=== PATIENT | male | born 2000 | race African-American/Black ===

== ENCOUNTER → 2019-10-19 09:35 | Outpatient (CLI) | payer BC, SELFPAY ==
[2019-10-19 09:34] VITALS: BMI 35.6
--- NOTE | 2019-10-19 09:39 | RAD_ITS ---
STUDY: X-RAY - LEFT KNEE REASON FOR EXAM: Knee pain after lifting weights, squatting. TECHNIQUE: 4 view(s) of the knee. COMPARISON: None. FINDINGS: Normal visualized distal femur. Normal visualized proximal tibia and fibula. Normal proximal tibiofibular articulation. Normal medial femorotibial compartment. Normal lateral femorotibial compartment. Normal patellofemoral articulation. The soft tissue structures are unremarkable. RAD/Knee 4 or More Views IMPRESSION: Normal x-ray examination of the left knee. Electronically Signed: Burton Reyes MD at 10:03 EST Tel , Service support ,
== END ==
LOC: HPRAD 09:39
PROVIDERS: PCP Pediatrics; Referring Provider Orthopaedic Surgery; Visit Provider Orthopaedic Surgery
DX: S89.92XA Unspecified injury of left lower leg, initial encounter (principal); X50.0XXA Overexertion from strenuous movement or load, initial encounter; Y93.B3 Activity, free weights; Y92.9 Unspecified place or not applicable; Y99.9 Unspecified external cause status
CPT/HCPCS: 73564

== ENCOUNTER → 2019-11-03 08:54 | Outpatient (CLI) | payer BC, SELFPAY ==
[2019-10-19 09:34] VITALS: BMI 35.6
--- NOTE | 2019-11-03 08:56 | MRI_ITS ---
STUDY: MRI LEFT KNEE REASON FOR EXAM: Male, 19 years old. Pain. Instability. Recent injury. TECHNIQUE: Standardized fat and water weighted pulse sequences were obtained in all 3 orthogonal planes. COMPARISON: None. FINDINGS: Normal medial meniscus. Normal hyaline cartilage of the medial femorotibial compartment. Normal medial femoral condyle and tibial plateau. Normal medial collateral ligamentous complex (MCL). Normal distal semimembranosus, gracilis and semitendinosus tendons. Normal lateral meniscus. Normal hyaline cartilage of the lateral femorotibial compartment. Normal lateral femoral condyle and tibial plateau. Normal proximal tibiofibular articulation. Normal lateral collateral (fibular) ligament. Normal popliteus tendon. Normal biceps femoris tendon. Normal anterior cruciate ligament (ACL). Normal posterior cruciate ligament (PCL). There is a patella salo deformity. Normal hyaline cartilage of the patellofemoral compartment. Normal medial and lateral patellar retinaculum. Normal quadriceps tendon. Normal patellar tendon. Normal Hoffa''s fat pad. There is a small volume joint effusion. The soft tissues are unremarkable. The otherwise visualized osseous structures are unremarkable. MRI/Lower Ext Joint Only (Routine) IMPRESSION: No ligamentous or meniscal tear. Patella salo. Joint effusion. Electronically Signed: Eduar Lopez MD at 10:55 EST , Service support ,
== END ==
LOC: MRI 08:56
PROVIDERS: PCP Physician Assistant; Referring Provider Orthopaedic Surgery; Visit Provider Orthopaedic Surgery
DX: S83.8X2A Sprain of other specified parts of left knee, initial encounter (principal); M25.562 Pain in left knee; X58.XXXA Exposure to other specified factors, initial encounter; Y93.9 Activity, unspecified; Y92.9 Unspecified place or not applicable; Y99.9 Unspecified external cause status
CPT/HCPCS: 73721

== ENCOUNTER 2025-01-01 23:23 | Emergency (ER) | payer SELFPAY ==
[2025-01-01 23:23] VITALS: BP 149/89; PULSE 89; RESP 15; TEMP 37.1; O2SAT 98; BMI 37.4
--- NOTE | 2025-01-01 23:51 | RAD_ITS ---
EXAM: Ribs unilateral minimum three views with PA chest x-ray CLINICAL HISTORY: Pain COMPARISON: None available TECHNIQUE: PA view of the chest and four views of the right ribs, 5 total images FINDINGS: The lungs are clear. No pneumothorax or pleural effusion. The cardiac and mediastinal contours are within limits. The visualized osseous structures appear within limits. No right-sided rib fracture or osseous lesion identified. RAD/Ribs Uni Min 3V w/PA Chest IMPRESSION: No evidence of acute disease as above. Reading Location: [id number]
[2025-01-02] MEDS: Orphenadrine 60 MG/2 ML Ampul IM (00:09)
[2025-01-02] MEDS: Ketorolac 30 MG/ML Syringe IM (00:09)
--- NOTE | 2025-01-02 00:57 | EDS_ITS ---
HPI History of Present Illness Chief Complaint: Chest Other Informant: patient and friend Narrative Narrative: Patient is a 24-year-old male with no reported significant past medical history. He states over the last 2 to 3 days he has noticed some pain in his right rib region. He states it hurts to move and take a deep breath. He denies any excessive activity or recent trauma. He denies any sick symptoms. He states that there has been no recent travel or surgery and he denies any history of DVT/PE. He also denies any family history of cardiac disease at a young age. He states that he was talking to his coworker this evening about his pain and she advised him to come to the hospital for evaluation. PFSH PFS Medical History no medical history no medical history Home Medications ?Medication ?Instructions ?Recorded ?Last Taken ?Type ibuprofen 600 mg tablet 600 mg PO 4X/DAY PRN pain #4 0 tabs 01/02/25 Unknown Rx methocarbamol 500 mg tablet 1,000 mg (2 x 500 mg) PO 4 X/DAY 01/02/25 Unknown Rx PRN Muscle pain/spasm #56 tabs Allergy/AdvReac Type Severity Reaction Status Date / Time No Known Allergies Allergy Verified 01/01/25 23:26 Social History (Updated 10/23/19 @ 11:[address] Faustina Valladares, DO) Smoking Status: Current every day smoker tobacco type: e-cigarettes ROS ROS ED Constitutional Constitutional ED: Denies chills or fever(s) Eyes Eyes: Denies change in vision ENT ENT ED: Denies sore throat Cardiovascular Cardiovascular: Reports chest pain; Denies palpitations or racing heartbeat Respiratory/Chest Respiratory/Chest: Denies cough or dyspnea Gastrointestinal Gastrointestinal: Denies abdominal pain, diarrhea, nausea or vomiting Genitourinary Genitourinary ED: Denies dysuria Musculoskeletal Musculoskeletal: Denies back pain Integumentary Denies Abrasions or rash Neurologic Neurologic: Denies headache(s) Hematologic/Lymphatic Hematologic/Lymphatic: Denies easy bleeding or easy bruising EXAM Physical Exam Const Vital Signs: 01/01/25 23:23 01/01/25 23:26 01/02/25 01:12 Temperature 98.7 F 98.1 F Temperature Source Axillary Pulse Rate 89 78 Respiratory Rate 15 16 Respiratory Effort Normal Non-Labored Blood Pressure 149/89 H 136/82 H Blood Pressure Mean 109 100 Pulse Ox 98 99 Oxygen Delivery Method Room Air Positive well nourished and well developed General Appearance ED: well developed; Negative for pallor HEENT HEENT Narrative: Normocephalic atraumatic Eyes PERRL and EOMs intact bilaterally General Eye ED: Negative for scleral icterus Neck supple and no JVD Chest Wall Chest Narrative: No bony deformity or subcutaneous emphysema noted There is reproducible pain with palpation in the right anterior lateral region rib regions 6-9 No overlying soft tissue changes to suggest trauma or infection Resp normal respiratory effort and clear to auscultation bilaterally Cardio regular rate and regular rhythm Rate: other Other Details: No murmurs rubs or gallops noted Radial and carotid pulses are equal and symmetric GI normal to inspection, nondistended, normoactive bowel sounds, non-tender, non- distended and no masses GI Narrative: No voluntary guarding or rigidity or pulsatile mass Negative Llamas sign Auscultation: normoactive bowel sounds Palpation: soft Back/Spine no CVA tenderness Extremity normal to inspection Extremity Narrative: No asymmetric edema no pitting edema negative Homans' sign bilaterally Neuro oriented x3, CN's II-XII intact bilaterally and no sensory deficits noted Sensorium / Orientation: alert Motor Exam: strength 5/5 throughout Psych mental status grossly normal Skin no rashes or lesions noted and no wounds General Skin Exam: Negative for jaundice or pallor MDM MDM MDM Narrative Medical decision making narrative: Patient arrived to the ER slightly hypertensive otherwise with stable vitals. He reported pain in the right rib cage region without trauma that is worse with motion and inspiration. In order to rule out pneumothorax or rib fracture or pneumonia chest x-ray with rib series was performed. We discussed potential D- dimer study for pulmonary embolus but the patient is PERC negative and therefore does not want to have blood work obtained. As the pain is reproducible and worse with motion and he has no clinically significant risk factors for cardiovascular disease I do not feel that this is ACS and physical exam shows normal sinus rhythm going against cardiac dysrhythmia as a cause of his pain. Therefore this time only felt need for the imaging study. X-ray revealed no acute findings and after treatment Toradol and Norflex he did report feeling better. As physical exam also shows no sign of soft tissue infection such as cellulitis or abscess I do not feel there is need for any type of further workup and is otherwise safe for discharge with symptomatic care. History & Record Review Discussion w/independent historian: Patient and Friend Radiography Diagnostic Testing: Clinical Impression(s) from Imaging Studies Ribs w/Chest X-Ray 01/01/25 23:51 IMPRESSION: No evidence of acute disease as above. Reading Location: [facility] Right rib series with 1 view chest as interpreted by the emergency medicine physician reveals no acute rib fracture or pneumothorax or infiltrate Discharge Plan Triage Chief Complaint: Chest Other ED Provider: Conor Pérez Dx/Rx/DC Orders Clinical Impression: Intercostal muscle strain Instructions: ED Chest Wall Strain Prescriptions: New ibuprofen 600 mg tablet 600 mg PO 4X/DAY PRN (Reason: pain) Qty: 40 0RF methocarbamol 500 mg tablet 1,000 mg PO 4X/DAY PRN (Reason: Muscle pain/spasm) Qty: 56 0RF Primary Care Provider: Care Physician,No Primary Referrals: Jose Crowder MD [Med Staff - Active Staff] - Care Physician,No Primary [Primary Care Provider] - Activity Restrictions/Additional Instructions: Your x-ray did not show any sign of rib fracture pneumonia or a hole in your lung known as a pneumothorax indicating this is most likely musculoskeletal strain/spasm. Take the prescribed medication as directed to help control symptoms and you may also use topical medication such as IcyHot [place] or lidocaine patches to help with symptoms. Return to the ER should you have any further concerns Print Language: Citizen Of [place] Disposition Disposition: Home, Self Care Discharge Date/Time: 01/02/25 01:13
[2025-01-02 01:12] VITALS: BP 136/82; PULSE 78; RESP 16; TEMP 36.7; O2SAT 99
== END 2025-01-02 01:13 | disposition home or self-care (01) ==
PROVIDERS: Emergency Provider Emergency Medicine; Visit Provider Emergency Medicine
DX: S29.011A Strain of muscle and tendon of front wall of thorax, initial encounter (principal); X58.XXXA Exposure to other specified factors, initial encounter; F17.290 Nicotine dependence, other tobacco product, uncomplicated
CPT/HCPCS: 71101; 96372; 99282